=== PATIENT | female | born 1955 | race African-American/Black ===

== ENCOUNTER 2017-11-09 15:59 | Emergency (ER) | payer MEDICAID, OTHER ==
[~2017-11-09] VITALS: Ht 162.6 cm; Wt 99.8 kg
[~2017-11-09 15:59] MED LIST: ABILIFY2 MG ORAL; IBUPROFEN600 MG ORAL; NORCO 5-325 TA1 EACH ORAL; NORCO 7.5-3251 EACH PO; VICODIN 5-5001 EACH PO
[2017-11-09 16:08] VITALS: BP 125/79
[2017-11-09] MEDS ORDERED: RISPERDAL1 MG PO (16:33)
[2017-11-09] MEDS ORDERED: TYLENOL EXTRA500 MG ORAL (16:33)
[2017-11-09 16:35] VITALS: BP 125/79
--- NOTE | 2017-11-09 20:56 | Emergency Room Report ---
History of Present Illness General Chief Complaint: Medication Refill Source: Patient Present Illness HPI The patient is a 62-year-old female presenting for medication refill. She states that she has a history of bipolar disorder. She takes Risperdal 1 mg twice a day but ran out 3 days ago. She has not been able to followup with psychiatry or primary doctor. She states that she is beginning to feel symptoms of depression consistent with her bipolar disorder. She is also beginning to feel pain of her right leg. She states that she has history of sciatica and this feels the same. Pain is a 7/10 dull ache that radiates down the right leg. She has not taken any pain medications. She denies any other symptoms including nausea, vomiting, fever, chills, numbness or tingling. She denies any thoughts of suicidal ideation Allergies: Coded Allergies: No Known Allergies (Unverified , 02/05/13) Patient History Past Medical History: see triage record Pertinent Family History: none Reviewed Nursing Documentation: PMH: Agreed, PSxH: Agreed Review of Systems All Other Systems: negative except mentioned in HPI Physical Exam Vital Signs Date Time Temp Pulse Resp B/P (MAP) Pulse Ox O2 Delivery O2 Flow Rate FiO2 11/09/17 16:02 98.8 85 20 125/79 100 Room Air Sp02 EP Interpretation: reviewed, normal General Appearance: no apparent distress, alert, GCS 15, non-toxic Head: normocephalic, atraumatic Eyes: bilateral eye normal inspection, bilateral eye PERRL ENT: hearing grossly normal, normal pharynx, no angioedema, normal voice Respiratory: chest non-tender, lungs clear, normal breath sounds, speaking full sentences Cardiovascular #1: regular rate, rhythm, no edema Musculoskeletal: back normal, gait/station normal, normal range of motion, non- tender Neurologic: alert, oriented x3, responsive, motor strength/tone normal, sensory intact, speech normal Psychiatric: judgement/insight normal, memory normal, mood/affect normal, no suicidal/homicidal ideation Skin: normal color, no rash, warm/dry, well hydrated Medical Decision Making PA Attestation Dr. Tom is my supervising physician. Patient management was discussed with my supervising physician Diagnostic Impression: Primary Impression: Sciatica of right side Additional Impression: Bipolar disorder Qualified Codes: F31.9 - Bipolar disorder, unspecified ER Course The patient is a 62-year-old female with a history of bipolar disorder and sciatica presenting for Risperdal refill and right leg pain Differential diagnosis considered not limited to: Bipolar disorder, depression, psychosis, suicidal ideation, muscle strain, sciatica, among others Physical exam: No apparent distress RRR Lungs are clear to auscultation bilaterally Normal gait SILT The patient is given refill of her medications so she is to follow up with her primary doctor as well as psychiatry. ER precautions given Last Vital Signs Date Time Temp Pulse Resp B/P (MAP) Pulse Ox O2 Delivery O2 Flow Rate FiO2 11/09/17 16:35 98.8 20 125/79 100 Room Air 11/09/17 16:02 85 Status: improved Disposition: HOME, SELF-CARE Condition: Improved Scripts Risperidone* (RISPERDAL*) 1 Mg Tablet 1 MG PO BID, #30 TAB Prov: BOOKER [email or web address] 11/09/17 Acetaminophen* (TYLENOL EXTRA STRENGTH*) 500 Mg Tablet 500 MG ORAL Q8H Y for Prn Headache/Temp > 101, #30 TAB 0 Refills Prov: BOOKER GAMBINO.Jose Alberto 11/09/17 Patient Instructions: Medicine Refill at the Emergency Department Additional Instructions: I discussed my findings with the patient. All questions and concerns have been answered. Treatment and medication compliance have been addressed. I advised the patient that they need to follow up with PMD in 3-5 days. Return to ED if symptoms worsen, new symptoms arise, or if needed for any reason. Patient verbalized understanding of discharge instructions. Please follow up with your psychiatrist as soon as possible BOOKER GAMBINO Nov 09, 2017 20:56
== END 2017-11-09 16:35 | disposition home or self-care (01) ==
LOC: EMR 16:18
DX: Z76.0 Encounter for issue of repeat prescription (principal); M54.31 Sciatica, right side; F41.9 Anxiety disorder, unspecified
CPT/HCPCS: 99284